=== PATIENT | male | born 1990 ===

== ENCOUNTER 2021-10-28 13:54 | Emergency (ER) | payer SELFPAY ==
[~2021-10-28] VITALS: Ht 180.3 cm; Wt 86.9 kg
[2021-10-28 14:12] VITALS: BP 127/84
== END 2021-10-28 14:27 | disposition home or self-care (01) ==
LOC: ER 13:55
DX: M79.609 Pain in unspecified limb (principal); Z00.00 Encounter for general adult medical examination without abnormal findings
CPT/HCPCS: 99281